=== PATIENT | female | born 1975 | race Caucasian/White ===

== ENCOUNTER 2019-01-07 11:37 | Observation (INO) | payer OTHER ==
[~2019-01-07] VITALS: Ht 165.1 cm; Wt 90.1 kg
[~2019-01-07 11:37] MED LIST: AZIT250 PO; FISH OIL 1,0001 EAC1 PO; FURO20 PO; GABA300 PO; INTE3SY; METH5; METO25ER; METR500; Multiple Vitam1 EAC1 PO; OXYACE5T; RANI150; RANI150 PO; REVATIO; Roxicodone15 MG PO; SOMA350 MG PO; SPIR50 PO; VITAMENS; [UNRECOGNIZED DRUG - OTHER]
[2019-01-07 12:11] LABS: BASOPHILS ABSOLUTE AUTO 0.05 K/mm3 (0.00-0.23); BASOPHILS PERCENT AUTO 1 % (0-2); EOSINOPHILS ABSOLUTE AUTO 0.13 K/mm3 (0.00-0.68); EOSINOPHILS PERCENT AUTO 2 % (0-6); Hematocrit 46.3 % (33.0-51.0); Hemoglobin 15.2 g/dL (11.5-16.0); IMMATURE GRAN ABSOLUTE AUTO 0.01 K/mm3 (0.00-0.10); IMMATURE GRAN PERCENT AUTO 0 % (0-1); LYMPHOCYTES ABSOLUTE AUTO 2.01 K/mm3 (0.84-5.20); LYMPHOCYTES PERCENT AUTO 30 % (21-46); MONOCYTES ABSOLUTE AUTO 0.77 K/mm3 (0.16-1.47); MONOCYTES PERCENT AUTO 12 % (4-13); Mean Corpuscular HGB 29.9 pg (26.0-34.0); Mean Corpuscular HGB Conc 32.8 g/dL (31.5-36.5); Mean Corpuscular Volume 91 fL (80-100); NEUTROPHILS ABSOLUTE AUTO 3.73 K/mm3 (1.96-9.15); NEUTROPHILS PERCENT AUTO 56 % (41-73); Platelet Count 177 K/mm3 (150-400); RDW Coefficient Variation 12.2 % (11.7-14.2); RDW Standard Deviation 40.5 fL (35.1-46.3); Red Blood Cell Count 5.09 M/mm3 (3.80-5.20)
[2019-01-07 12:37] LABS: Alanine Aminotransfer (ALT/SGP 32 U/L (12-78); Albumin, Blood 4.1 g/dL (3.4-5.0); Albumin/Globulin Ratio 1.1 (0.8-1.8); Alk Phos 63 U/L (50-136); Anion Gap 6 mmol/L (6-16); Aspartate Aminotrans (AST/SGOT 12 U/L (12-37); Bilirubin, Total 0.3 mg/dL (0.1-1.0); Blood Urea Nitrogen 14 mg/dL (8-24); Bun/Creatinine Ratio 22.9 (12.0-20.0); CO2, Blood 26 mmol/L (21-32); Calcium, Blood 8.9 mg/dL (8.5-10.1); Chloride, Blood 108 mmol/L (98-108); Creatinine, Blood 0.61 mg/dL (0.40-1.00); Globulin, Blood 3.6 g/dL (2.2-4.0); Glomerular Filtration Rate >60 (60-); Glucose, Blood 113 mg/dL (70-99); Potassium, Blood 4.4 mmol/L (3.5-5.5); Sodium, Blood 140 mmol/L (136-145); Total Protein, Blood 7.7 g/dL (6.4-8.2); Troponin I <0.015 ng/mL (0.000-0.040)
[2019-01-07] MEDS ORDERED: METO100ER PO (14:50)
[2019-01-07] MEDS ORDERED: POTCHL20ER PO (14:51)
[2019-01-07] MEDS ORDERED: SILD50TA PO (16:00)
--- NOTE | 2019-01-07 16:02 | NUR ---
Initial Visit: Palliative Care Consult for Advanced Care Planning. Pt is A&Ox4 and reports 5.5/10 pain in her chest. She reports the pain is bone pain from her last surgery. Asked if she would like something for pain, Pt denies need at this time. Pt's friend Rafaela present during visit and Pt gives permission to have discussion with Rafaela present. Pt denies anxiety but states that she is a little emotional and feeling frustrated with her condition. Pt tearful at times and offered emotional support. Listened as she expressed frustrations and validated her concerns. Pt lives at home with her and does not practice any particular denominational bear. She reports that her is denominational and may appreciate and visit from a supervisor orchard when he arrives. Instructed Pt to ask her nurse to contact supervisor orchard or contact palliative care and we will contact supervisor orchard. Pt reports adequate support with friends and family if needs for assistance in care arises. Discussed AD/POLST with Pt and she expresses interest. Pt prefered to learn about AD. Left AD with Pt and educated on each section. Pt will discuss with her family regarding her wishes and will complete AD at a later time. Pt reports no other concerns at this time. Plan: Obtain copy of advance directive once complete. Will remain available.
[2019-01-07] MEDS ORDERED: CHOL10002 PO (16:08)
--- NOTE | 2019-01-07 20:57 | NUR ---
PM NOTE. ASSUMED CARE OF PT APROX 1900, PT IS A&Ox4 AND IND IN THE ROOM, PT WAS ADMITTED DUE TO COBRA TRANSFER TO [facility] DUE TO PROX ATRIAL TACH (PAT). TELE INTACT, NSR W/PAT, PT DENIES CHEST PAIN/PRESSURE. PT'S BP 136/96. NO EDEMA NOTED ON ASSESSMENT. L/S CLEAR T/O. BT PRESENT AND HYPERACTIVE, ABD IS SOFT AND NONTENDER TO PALP. CALL LIGHT IN REACH, BED IS LOCKED AND LOW WILL CONTINUE TO MONITOR.
== END 2019-01-07 23:11 | disposition short-term general hospital (02) ==
LOC: ER 11:37 → ERHOLD 11:38 → PCU 18:55
PROVIDERS: Physician Assistant; ADMIT Hospitalist
DX: I47.1 Supraventricular tachycardia (principal); I27.20 Pulmonary hypertension, unspecified; G47.33 Obstructive sleep apnea (adult) (pediatric); Q20.3 Discordant ventriculoarterial connection; G89.29 Other chronic pain; Z79.899 Other long term (current) drug therapy
CPT/HCPCS: 36415; 71046; 80053; 83735; 83880; 84484; 85025; 93005; 93010; 96365; 96366; 96372; 96375; 99285-25; G0378; J1650; J3475

== ENCOUNTER → 2023-07-11 | Outpatient (CLI) | payer OTHER ==
[~2023-07-11] MED LIST changes: +CHOL10002 PO; +METO100ER PO; +POTCHL20ER PO; +SILD50TA PO
[2023-07-11 16:53] LABS: U Amphetamine Screen Not Detected; U Barbituate Screen Not Detected; U Benzodiazapine Screen Not Detected; U Buprenorphine Screen Not Detected; U Cannabinoids Screen Not Detected; U Cocaine Screen Not Detected; U Methadone Screen Not Detected; U Methamphetamine Screen Not Detected; U Opiates Screen Not Detected; U Oxycodone Screen DETECTED; U Phencyclidine Screen Not Detected; U Propoxyphene Screen Not Detected
== END ==
LOC: LAB SHORT 11:20 → LAB 11:20
PROVIDERS: Family Medicine
DX: Z51.81 Encounter for therapeutic drug level monitoring (principal); Z79.891 Long term (current) use of opiate analgesic
CPT/HCPCS: G0480

== ENCOUNTER → 2024-01-07 | Outpatient (CLI) | payer OTHER ==
[2024-01-08 16:52] LABS: U Oxycodone Screen DETECTED
[2024-01-08 16:53] LABS: U Amphetamine Screen Not Detected; U Barbituate Screen Not Detected; U Benzodiazapine Screen Not Detected; U Buprenorphine Screen Not Detected; U Cannabinoids Screen Not Detected; U Cocaine Screen Not Detected; U Methadone Screen Not Detected; U Methamphetamine Screen Not Detected; U Opiates Screen Not Detected; U Phencyclidine Screen Not Detected
== END | disposition home or self-care (01) ==
LOC: LAB 15:30 → LAB SHORT 15:30
PROVIDERS: Registered Nurse
DX: Z51.81 Encounter for therapeutic drug level monitoring (principal); Z79.891 Long term (current) use of opiate analgesic

== ENCOUNTER → 2024-11-27 | Outpatient (CLI) | payer OTHER ==
[2024-11-27 13:30] LABS: Protein, Urine Quantitative 7.4 mg/dL (0.0-11.9)
== END ==
LOC: LAB SHORT 11:39 → LAB 11:39
PROVIDERS: Registered Nurse
DX: Q24.9 Congenital malformation of heart, unspecified (principal); I50.9 Heart failure, unspecified; E87.6 Hypokalemia
CPT/HCPCS: 82570; 84156

== ENCOUNTER 2025-01-17 20:30 | Observation (INO) | payer OTHER ==
[~2025-01-17] VITALS: Ht 165.1 cm; Wt 94.8 kg
[~2025-01-17 20:30] MED LIST changes: +JARDIANCE10 MG PO; +SILD25T PO; -SILD50TA PO; +TIZA4 PO; +TORSE20 PO; +UPTRAVI PO
[2025-01-17 21:04] LABS: BASOPHILS ABSOLUTE AUTO 0.05 K/mm3 (0.00-0.23); BASOPHILS PERCENT AUTO 1 % (0-2); EOSINOPHILS ABSOLUTE AUTO 0.22 K/mm3 (0.00-0.68); EOSINOPHILS PERCENT AUTO 2 % (0-6); Hemoglobin 16.9 g/dL (11.5-16.0); IMMATURE GRAN ABSOLUTE AUTO 0.03 K/mm3 (0.00-0.10); IMMATURE GRAN PERCENT AUTO 0 % (0-1); LYMPHOCYTES PERCENT AUTO 21 % (21-46); MONOCYTES ABSOLUTE AUTO 1.07 K/mm3 (0.16-1.47); MONOCYTES PERCENT AUTO 10 % (4-13); Mean Corpuscular HGB 28.3 pg (26.0-34.0); Mean Corpuscular HGB Conc 33.1 g/dL (31.5-36.5); Mean Corpuscular Volume 85 fL (80-100); Mean Platelet Volume 10.5 fL (9.1-12.4); NEUTROPHILS PERCENT AUTO 66 % (41-73); Platelet Count 213 K/mm3 (150-400); RDW Coefficient Variation 14.8 % (11.7-14.2); RDW Standard Deviation 46.2 fL (35.1-46.3); Red Blood Cell Count 5.97 M/mm3 (3.80-5.20); White Blood Cell Count 10.57 K/mm3 (4.00-11.30)
[2025-01-17 21:26] LABS: Albumin, Blood 4.3 g/dL (3.4-5.0); Bilirubin, Total 0.9 mg/dL (0.1-1.0); Bun/Creatinine Ratio 24.8 (12.0-20.0); Calcium, Blood 9.7 mg/dL (8.5-10.1); Creatinine, Blood 1.13 mg/dL (0.40-1.00); Globulin, Blood 4.3 g/dL (2.2-4.0); Total Protein, Blood 8.6 g/dL (6.4-8.2)
[2025-01-17] MEDS ORDERED: NS 1,000 ML IV SCH (22:20)
[2025-01-17] MEDS ORDERED: Aspirin 325 MG Tab PO ONE (23:00)
[2025-01-17] MEDS ORDERED: Ondansetron HCl 2 MG / ML 2ML Vial IV PRN (23:10)
[2025-01-17] MEDS ORDERED: Clopidogrel Bisulfate 300 MG TABLET PO ONE (23:15)
[2025-01-17 23:32] LABS: International Normalized Ratio 0.97; Prothrombin Time Results 10.4 Sec (9.7-11.5)
[2025-01-17 23:33] LABS: CHOL/HDL RATIO 3.3; Cholesterol 166 mg/dL (50-200); HDL Cholesterol 51 mg/dL (>39); LDL/HDL RATIO 1.5; Low Density Lipoprotein Chol 76 mg/dL (0-110); Triglycerides 194 mg/dL (30-160); Very Low Density Lipoprot Chol 38 mg/dL (6-32)
[2025-01-18 01:34] LABS: U Amphetamine Screen Not Detected; U Barbituate Screen Not Detected; U Benzodiazapine Screen Not Detected; U Buprenorphine Screen Not Detected; U Cannabinoids Screen Not Detected; U Cocaine Screen Not Detected; U Methadone Screen Not Detected; U Methamphetamine Screen Not Detected; U Opiates Screen Not Detected; U Oxycodone Screen DETECTED; U Phencyclidine Screen Not Detected
[2025-01-18 01:36] VITALS: BP 129/67
[2025-01-18 04:54] VITALS: BP 117/59
--- NOTE | 2025-01-18 05:19 | NUR ---
LATE ENTRY REPORT RECEIVED FROM ER NURSE SKY. PT ARRIVED TO PCU AROUND 0127. [facility] TRAN[facility]. PT A&0 X4, CALM, COOPERATIVE TO CARE. PT WITH EQUAL SYMMETRY OF FACE, NO FACIAL DROOP PRESENT. PT ABLE TO SMILE AND STICK TOUNGUE OUT, MOVE IT [id number] WITHOUT DIFFICULTY. PT ABLE TO HOLD ARMS, NO DRIFT. 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 HR IN THE 70'S, SINUS RHYTHM PACED. SHE DENIES ANY CP/PRESSURE, NUMB/TINGLING, SBP STABLE. O2 >90% ON 3L VIA NC, PT ON 3L AT BASELINE. PT WITH ATAXIA, SBA TO BATHROOM. PT RESTING IN BED AT THIS TIME. CALL LIGHT IN REACH.
--- NOTE | 2025-01-18 05:38 | NUR ---
SHIFT SUMMARY PT A&O X4, CALM, COOPERATIVE TO CARE. Q4 NEURO CHECKS. 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 PERRLA. NO FACIAL DROOP OR ARM DRIFT. HR IN THE 70'S, SINUS RHYTHM, PACED. DENIES CP/PRESSURE, NUMB/TINGLING, SBP STABLE. O2 >92% ON 3L VIA NC, PT ON 3L VIA NC AT BASELINE. NO ACUTE CHANGES T/O SHIFT. PROVIDER TO BEDSIDE TO DISCUSS PLAN OF CARE WITH PT. PT AGREEABLE. ECHO ORDERED FOR THIS AM. PT DENIES QUESTIONS/CONCERNS AT THIS TIME. WILL MONITOR PT AND REPORT TO ONCOMING RN.
[2025-01-18 08:18] VITALS: BP 118/67
[2025-01-18] MEDS ORDERED: Misc. Tablet PO SCH (09:00)
[2025-01-18] MEDS ORDERED: Atorvastatin 40 MG Tab PO SCH (09:00)
[2025-01-18] MEDS ORDERED: Empagliflozin 10 MG TAB PO SCH (09:00)
[2025-01-18] MEDS ORDERED: Gabapentin 300 MG Cap PO SCH (09:00)
[2025-01-18] MEDS ORDERED: Sildenafil Citrate 20 MG Tab PO SCH (09:00)
[2025-01-18] MEDS ORDERED: Potassium Chloride 20 MEQ TabCR PO SCH (09:00)
[2025-01-18] MEDS ORDERED: Multivitamins/Minerals TAB PO SCH (09:00)
[2025-01-18] MEDS ORDERED: Aspirin 81 MG Chew PO SCH (09:00)
[2025-01-18] MEDS ORDERED: Clopidogrel Bisulfate 75 MG Tab PO SCH (09:00)
[2025-01-18] MEDS ORDERED: Metoprolol Succinate 50 MG TABCR PO SCH (09:00)
[2025-01-18] MEDS ORDERED: Enoxaparin 40 MG/0.4 ML SYR SC SCH (09:00)
[2025-01-18] MEDS ORDERED: OxyCODONE HCL 5 MG TAB PO PRN (09:05)
[2025-01-18 11:59] VITALS: BP 93/71
[2025-01-18 16:04] VITALS: BP 125/69
[2025-01-18] MEDS ORDERED: ASPI81CH PO (16:17)
[2025-01-18] MEDS ORDERED: CLOP75 PO (16:19)
[2025-01-18] MEDS ORDERED: ATOR80 (16:19)
--- NOTE | 2025-01-18 16:46 | NUR ---
DISCHARGE PATIENT ALERT, ORIENTED x4. ABLE TO MAKE NEEDS KNOWN TO STAFF. MINIMAL WEAKNESS TO RIGHT LOWER EXTREMITY, OTHERWISE NEURO INTAKE AND NO OTHER DEFICITS NOTED. BP STABLE. PATIENT PACED ON TELE. ON BASELINE 3L NC, SPO2 >90%. IV REMOVED. DISCHARGE EDUCATION PROVIDED TO PATIENT. DISCHARGED WITH INFORMATION AND ALL BELONGINGS.
== END 2025-01-18 16:50 | disposition home or self-care (01) ==
LOC: ER 20:30 → MEDS 20:31 → PCU 01-18 01:18
PROVIDERS: Emergency Medicine; Student in an Organized Health Care Education/Training Program; ADMIT Student in an Organized Health Care Education/Training Program
DX: I63.9 Cerebral infarction, unspecified (principal); I27.20 Pulmonary hypertension, unspecified; G47.33 Obstructive sleep apnea (adult) (pediatric); Q24.9 Congenital malformation of heart, unspecified; Z79.82 Long term (current) use of aspirin; Z79.899 Other long term (current) drug therapy; Z87.891 Personal history of nicotine dependence; Z95.0 Presence of cardiac pacemaker
CPT/HCPCS: 70450; 70496; 70498; 80053; 80061; 82947; 85025; 85610; 85730; 93005; 93010; 93306; 96372; 97110; 97116; 97161; 99285-25; A9270; G0378; J1650; J7030; Q9967